=== PATIENT | female | born 1975 | race Caucasian/White ===

== ENCOUNTER → 2019-01-06 | Outpatient (CLI) | payer OTHER ==
--- NOTE | 2019-01-06 17:33 | XR ---
EXAMINATION TYPE: XR chest 2V DATE OF EXAM: 01/06/2019 COMPARISON: NONE TECHNIQUE: PA and lateral views submitted. HISTORY: Clinical trial for TB FINDINGS: The lungs are clear and there is no pneumothorax, pleural effusion, or focal pneumonia. No overt fa ilure. Mild hyperinflation of the lungs correlate for asthma or COPD. Hypertrophic and degenerative change of the spine. There are no pleural calcifications or areas of pl eural thickening. No calcified lymph nodes. No intraparenchymal calcifications. IMPRESSION: 1. No diagnostic evidence of TB.
== END | disposition home or self-care (01) ==
LOC: LABWHC1 17:09
PROVIDERS: ATTEND Dermatology MOHS-Micrographic Surgery
DX: Z00.6 Encounter for examination for normal comparison and control in clinical research program (principal)
CPT/HCPCS: 71046